=== PATIENT | female | born 1950 | race Caucasian/White ===

== ENCOUNTER → 2017-02-13 | Day surgery (SDC) | payer MEDICARE, OTHER ==
[~2017-02-13] VITALS: Ht 167.6 cm; Wt 88.6 kg
[2017-02-13] VITALS (12 sets, daily range): BP systolic 97–133; BP diastolic 51–76; PULSE 57–70; RESP 9–19; O2SAT 97–98
[~2017-02-13] MED LIST: 0.9% Sodium Chloride 1,000 ML IV SCH; 0.9% Sodium Chloride 50 ML ONE; AMIO200T PO; APIX5TAB PO; Dexamethasone 4 mg/mL Inj IVPUSH PRN; Dexamethasone 4 mg/mL Inj ONE; EPHEDrine Sulfate 50 mg/mL Inj IVPUSH PRN; EPHEDrine/NS 5 mg/mL 5 mL Syringe ONE; FURO40TA4 PO; HYDROmorphone 1 mg/mL Inj IVPUSH PRN; Heparin 1,000 Unit/mL 10 mL Inj ONE; Heparin 10,000 Unit/1,000 mL NS Premix IV ONE; Isoproterenol 200 mCg/mL 1 mL Inj IV ONE; LOSA25TA21 PO; Lactated Ringer's 1,000 ML IV SCH; Lactated Ringer's 500 ML IV PRN; MAGN400T4 PO; MELO-259 PO; METO-369 PO; MetoCLOpramide 5 mg/mL 2 mL Inj IVPUSH PRN; Ondansetron 2 mg/mL 2 mL Inj IVPUSH PRN; Ondansetron 2 mg/mL 2 mL Inj ONE; Phenylephrine 10,000 mCg/mL Inj IVPUSH PRN; Propofol 10,000 mCg/mL 20 mL Inj ONE; fentaNYL-PF 50 mCg/mL 2 mL Inj IVPUSH PRN; fentaNYL-PF 50 mCg/mL 2 mL Inj ONE
[2017-02-13 07:27] LABS: BASOPHILS % (AUTO) 0.5 % (0-3); EOSINOPHILS % (AUTO) 4.2 % (0-5); MONOCYTES % (AUTO) 11.7 % (4-12); Mean Corpuscular Hemoglobin 30.3 pg (27.0-35.0); Platelet Count 265 bil/L (150-400)
[2017-02-13 07:41] LABS: INR 0.95 ratio
--- NOTE | 2017-02-13 08:40 | PCM.HPANE ---
Patient Data Date of Service: Feb 13, 2017 (0838) Surgeon Admitting Provider: Attending Provider:Vivek Niño MD Primary Care Physician:Abdoulaye Mariano MD Other Provider:Alda Navarrete Anesthesia Reason for Visit Supraventricular Tachycardia Ht/WT & BMI Height (Feet): 5 Height (Inches): 6.00 Weight (Kilograms): 88.600 Body Mass Index 31.39 Allergies Coded Allergies: Penicillins (Unverified Allergy, Unknown, 02/13/17) Sulfa (Sulfonamide Antibiotics) (Unverified Allergy, Unknown, 02/13/17) amoxicillin (Unverified Allergy, Unknown, 02/13/17) azithromycin (Unverified Allergy, Unknown, 02/13/17) Past Anesthesia History Anesthesia History: Denies:: Anesthesia Reactions Diabetes History Hx Diabetes?: No MRSA MRSA: No Medications Home Meds Incl Beta Hansel: Yes Previous Beta Hansel Dose >24: Previous Dose <24 Hours (this am) Reported Medications Metoprolol Succinate ER 50 Mg Tab.[id number] Mg PO BID Ref 0 02/12/17 Magnesium Oxide 400 Mg [id number] Mg PO BID 02/12/17 Losartan Potassium 25 Mg Cjlhyc29.5 Mg PO DAILY 02/12/17 Apixaban (Eliquis)5 Mg Tablet5 Mg PO BID 02/12/17 Discontinued Reported Medications Meloxicam 7.5 Mg TabletUnknown Dose PO BID 30 Days Ref 0 02/12/17 Furosemide 40 Mg [id number] Mg PO DAILY 02/12/17 Amiodarone 200 Mg [id number] Mg PO DAILY Ref 0 02/12/17 History History of ENT Problems?: Yes HEENT History: Positive for:: Cataracts Denies:: Dysphagia Glaucoma Sinus Problem Denture Type: Full- Lower Teeth Condition: Missing Teeth Other HEENT Pertinent History: some ear congestion Hx of Heart Problems?: Yes Cardiovascular History: Positive for:: Irregular Heartbeat (atrial fib , SVT here for ablation) Denies:: Cardiac Surgery Chest Pain Congestive Heart Failure Edema Heart Murmur Hypertension Peripheral Vascular Hx of Respiratory Problem?: No Respiratory History: Positive for:: Tuberculosis (tested positive in [employer], father had TB) Denies:: Asthma Chest Surgery Dyspnea Hx Neurologic Problems?: No Hx of GI Problems?: No Hx of Problems?: No Hx Musculoskeletal Problems?: No Musculoskeletal History: Denies:: Back Injury Joint Replacement Hx of Psycho/Social Problems?: No Hx Surgeries?: Yes Hx Any Other Health Problems?: No Other History: Positive for:: Hospitalization (atrial fib, ) Denies:: Cancer Thyroid Disease History Blood Transfusions: Positive for:: Accept Blood Products? Blood Transfusions Denies:: Blood Transfuse Reaction Hx Diabetes: No Hx Alcohol Use: NoHx Substance Use: No Stop/Bang S-Snoring: Do You Snore Loudly: No TIFFANY Risk Assessment: Low Risk, <3 Yes Risk Assessment Category Category 1A: Patient has history of documented sleep apnea, and HAS NOT received any narcotic, sedative or anesthesia administration during this stay. Category 1B: Patient has history of documented sleep apnea, and HAS received any narcotic , sedative or anesthesia administration during this stay Category 2: Patient has SUSPECTED Obstructive Sleep Apnea, and HAS received any narcotic , sedative or anesthesia administration during this stay. Category 3: Patient has SUSPECTED Obstructive Sleep Apnea and HAS NOT received narcotic, sedative or anesthesia administration during this stay. Category 4: Outpatient in Procedural Areas with known sleep apnea or who screen positive for High Risk via the STOP/BANG questionnaire. Exam Exam Vital Signs Vital Signs Date Time Temp Pulse Resp B/P Pulse Ox O2 Delivery O2 Flow Rate FiO2 02/13/17 07:27 62 14 133/76 02/13/17 07:27 36.6 62 14 133/76 Room Air General Appearance: Alert, Oriented X3 HEENT/AIRWAY: MP 1 Lungs: Clear to Auscultation Heart: Exam Unremarkable Meds/Labs/Diagnostics Labs Test 02/13/17 07:23 White Blood Count 4.3th/mm3 (3.8-10.1) Red Blood Count 4.65mil/mm3 (3.90-5.20) Hemoglobin 14.1g/dL (12.0-15.6) Hematocrit 40.9% (35.0-46.0) Mean Corpuscular Volume 88.0fL (81-100) Mean Corpuscular Hemoglobin 30.3pg (27.0-35.0) Mean Corpuscular Hemoglobin Concent 34.5% (32.0-37.0) Red Cell Distribution Width 14.5% (12.3-15.4) Platelet Count 265bil/L (150-400) Neutrophils (%) (Auto) 23.0% (40-74) Lymphocytes (%) (Auto) 60.6% (14-46) Monocytes (%) (Auto) 11.7% (4-12) Eosinophils (%) (Auto) 4.2% (0-5) Basophils (%) (Auto) 0.5% (0-3) Prothrombin Time 10.1sec (8.1-12.5) Prothromb Time International Ratio 0.95ratio Sodium Level 143mEq/L (134-144) Potassium Level 4.1mEq/L (3.5-5.2) Chloride Level 104mEq/L (97-108) Carbon Dioxide Level 22mmol/L (18-29) Blood Urea Nitrogen 26mg/dL (8-27) Creatinine 0.74mg/dL (0.57-1.00) Estimat Glomerular Filtration Rate 112mL/min (>59) Glucose Level 91mg/dL (60-99) Calcium Level 9.2mg/dL (8.5-10.1) Plan Impression Patient chart reviewed, patient interviewed and anesthestic plan with risks, benefits, and alternatives discussed, and informed consent obtained. NPO per Anesth. Guidelines: Yes ASA Physical Status: ASA2 Mod Systemic Disease Anesthetic Plan: GA Bene/Risks/Altern/Consents: Yes HP Complete Prior to Induction: Yes Jorge Myles MD Feb 13, 2017 08:40
--- NOTE | 2017-02-13 11:01 | PCM.ANEP1 ---
Post Anesthesia PACU Phase 1 Assessment Vital Signs 72, 20, 96%, 112/59, 36.1 Vital Signs Date Time Temp Pulse Resp B/P Pulse Ox O2 Delivery O2 Flow Rate FiO2 02/13/17 07:27 62 14 133/76 02/13/17 07:27 36.6 62 14 133/76 Room Air Anesthetic Administered: GA Level of Alertness: Awake, talking RUCKER's with Equal Strength: Yes Pain: No Nausea or Vomiting: No CV Function & Hydration Stable: Yes Airway Device: none Lungs: Clear to Auscultation Dermatome Level: Full Sensation Summary uneventful GA PACU Phase 2 Assessment Complications: No Follow up Care: No Patient Instructions Provided: N/A Jorge Myles MD Feb 13, 2017 11:01
--- NOTE | 2017-02-13 12:50 | PROCED ---
[address] [address] PROCEDURE NOTE PATIENT: PHYLLIS HENDRICKSON : 1950 MR#: [id number] ADMIT: 02/13/2017 JOB ID: [id number] DATE OF SERVICE: 02/13/2017 PREOPERATIVE DIAGNOSIS(ES): Paroxysmal drug refractory supraventricular tachycardia. 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 PROCEDURES PERFORMED: 1. Comprehensive electrophysiology study with left atrial pacing recording via the coronary sinus catheter. 2. Three-dimensional electroanatomic mapping using the CARTO 3 system. 3. Supraventricular tachycardia ablation (atrial ablation; slow pathway modification). 4. Fluoroscopy. 5. Arrhythmia provocation with isoproterenol infusion. SURGEON: Pumping Station Engineer: Vivek Niño MD, electrophysiology attending ASSISTANTS: Karina Espinoza. ANESTHESIA: General endotracheal anesthesia was undertaken for this case. INDICATION: The patient is a pleasant 67-year-old woman with a longstanding history of SVT. After discussion of the risks and benefits of catheter based mapping and ablation, she opted to proceed. PROCEDURE DESCRIPTION: Following informed consent, the patient was taken to the EP laboratory in a fasting, nonsedated state where she was prepped in the usual sterile fashion. The bilateral groins were infiltrated with 1% lidocaine; then, using modified Seldinger technique, 7- and 8-Setswana sheaths were inserted through the right femoral vein and two 6-Setswana sheaths were inserted into the left femoral vein. Under fluoroscopic guidance, a deflectable decapolar catheter was advanced to the coronary sinus, with the most proximal poles at the os of the sinus. A Razia quadripolar catheter was advanced to the RV apex and a CRD 2 quadripolar catheter was advanced to the His position. A comprehensive electrophysiology study was undertaken with right atrial pacing recording, right ventricular pacing recording, His bundle recording, and left atrial pacing recording via the coronary sinus catheter. Retrograde conduction showed a concentric atrial activation pattern. A retrograde jump was seen. Antegrade conduction showed an antegrade jump. Ultimately the patient's clinical tachycardia was inducible but nonsustained. This was a regular narrow tachycardia with a VA time of 0 msec initiated with an antegrade jump. This was consistent with AV christine reentrant tachycardia. As such, we prepared for slow pathway modification. An F curve 4 mm ablation catheter was brought to the field and used to create a three-dimensional electroanatomic map of the right atrium, tricuspid annulus, and triangle of Watt. Ablation lesions were placed at the base of the triangle of Watt, though ultimately the last ablation lesion leading to multiple conducted junctional beats. Aggressive induction maneuvers were then performed both on and off isoproterenol to a dose of 2 mcg/minute. No antegrade jump was seen any longer, and no echoes, and no tachycardia. This concluded our procedure. All catheters and sheaths were removed. Manual pressure was held for hemostasis. The patient was transferred to the [facility] for monitoring, bedrest, and discharge. COMPLICATIONS: None. ESTIMATED BLOOD LOSS: Negative. FINDINGS: 1. Baseline rhythm was sinus with an RR interval of 684 msec, ND 157 msec, QRS 81 msec, QT 373 msec. 2. Intracardiac intervals: AH interval 88 msec, HV 52 msec. Post ablation those values 58 msec and 56 msec, respectively. 3. Retrograde conduction: Concentric atrial activation retrograde Wenckebach is seen at 460 msec. 4. Antegrade conduction: AV Wenckebach 390 msec. Fast pathway ERP was 330 msec. Atrial ERP is 260 msec at a [address] 5. Inducible AV christine reentry tachycardia as described above, status post slow pathway modification, without an antegrade jump or echoes post ablation. IMPRESSION: Successful slow pathway modification for AV christine reentrant tachycardia. PLAN: 1. Bed rest x4 hours. 2. Resume current medications. 3. Monitoring and discharge from the [facility]. 4. Follow up with Abdoulaye Gallego PA-C in four weeks, and with Dr. Corral thereafter. ATTENDING STATEMENT: Vivek Niño MD, electrophysiology attending, was present for and supervised/performed all aspects of this procedure.
--- NOTE | 2017-02-13 16:03 | NUR ---
D/C from [facility] following a successful SVT ablation today by Dr Niño. Femoral venous access sites are soft and non-tender at time of D/C from [facility] following 30 minutes of being up - walking and sitting. 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 D/C instructions were reviewed and follow up appointment has been scheduled.
== END | disposition home or self-care (01) ==
LOC: SAS 00:28
PROVIDERS: ATTEND Internal Medicine Cardiovascular Disease
DX: I47.1 Supraventricular tachycardia (principal); I48.1 Persistent atrial fibrillation; I11.0 Hypertensive heart disease with heart failure; I50.20 Unspecified systolic (congestive) heart failure; I34.0 Nonrheumatic mitral (valve) insufficiency; Z79.01 Long term (current) use of anticoagulants; Z79.899 Other long term (current) drug therapy
CPT/HCPCS: 36415; 80048; 85025; 85610; 93005; 93613; 93621; 93653; C1730; C1732; J1100; J1644; J2250; J2405; J2704; J3010; J7120; J7659